=== PATIENT | male | born 1940 | race Caucasian/White ===

== ENCOUNTER 2017-06-17 10:58 | Outpatient (CLI) | payer MEDICARE ==
[2017-06-17 13:29] LABS: #Basophils 0.1 thou/uL (0.0-0.2); #Eosinphils 0.1 thou/uL (0.0-0.7); #Lymphocytes 1.9 thou/uL (1.20-3.40); #Monocytes 0.7 thou/uL (0.11-0.59); #Neutrophils 7.1 thou/uL (1.40-6.50); %Basophils 0.5 % (0.0-1.0); %Eosinophils 0.9 % (0.0-10.0); %Lymphocytes 19.2 % (21.0-51.0); %Monocytes 7.1 % (0.0-10.0); %Neutrophils 72.3 % (42.0-75.0); Hemoglobin 16.3 g/dL (14.0-18.0); Mean Corpuscular HGB CONC 33.5 g/dL (32.0-36.0); Mean Corpuscular Hemoglobin 33.5 pg (27.0-31.0); Mean Corpuscular Volume 99.9 fl (80.0-94.0); Mean Platelet Volume 7.3 fL (7.4-10.4); Platelet Count 348 thou/uL (130-400); RBC Distribution Width 13.4 % (11.5-14.5); Red Blood Cell (RBC) Count 4.88 mill/uL (4.70-6.10); White Blood Cell (WBC) Count 9.8 thou/uL (4.8-10.8)
[2017-06-17 13:55] LABS: Anion Gap 15 mmol/L (10-20); BUN (Urea Nitrogen) 26 mg/dL (8.4-25.7); Calc. Creatinine Clearance 0 mL/min (70-130); Calcium 9.7 mg/dL (7.8-10.44); Carbon Dioxide 27 mmol/L (23-31); Chloride 101 mmol/L (98-107); Estimated GFR-MDRD 76; Glucose 81 mg/dL (83-110); Potassium 4.5 mmol/L (3.5-5.1); Sodium 138 mmol/L (136-145)
--- NOTE | 2017-06-24 19:36 | EKG ---
Test Reason : Blood Pressure : / mmHG Vent. Rate : 074 BPM Atrial Rate : 074 BPM P-R Int : 132 ms QRS Dur : 090 ms QT Int : 402 ms P-R-T Axes : 075 019 047 degrees QTc Int : 446 ms Normal sinus rhythm Normal ECG When compared with ECG of 25-DEC-2010 14:56, Premature supraventricular complexes are no longer Present ST no longer elevated in Inferior leads Nonspecific T wave abnormality, improved in Lateral leads Confirmed by ROSA GODOY (2) on 06/24/2017 7:36:34 PM Referred By: SACHA Confirmed By:ROSA GODOY
== END 2017-06-17 10:59 | disposition home or self-care (01) ==
LOC: LABBT 10:58
PROVIDERS: ATTEND Surgery
DX: Z01.818 Encounter for other preprocedural examination (principal); K40.90 Unilateral inguinal hernia, without obstruction or gangrene, not specified as recurrent
CPT/HCPCS: 80048; 85025; 93005; 93010

== ENCOUNTER 2017-06-22 09:12 | Day surgery (SDC) | payer MEDICARE ==
[2017-06-17 11:28] VITALS: BMI 28.0
[2017-06-22] MEDS ORDERED: CEFAZOLIN/Water 2 GM/20 ML SYRINGE ONE (10:28)
[2017-06-22] MEDS ORDERED: Fentanyl 100 MCG/2 ML VIAL ONE (10:29)
[2017-06-22] MEDS ORDERED: Bupivacaine PF 0.5% 30 ML VIAL ONE (10:31)
[2017-06-22] MEDS ORDERED: Bupivacaine/Epinephrine 0.25% 30 ML VIAL ONE (10:31)
[2017-06-22] MEDS ORDERED: Ondansetron HCl/PF 4 MG/2 ML Vial ONE (15:22)
[2017-06-22] MEDS ORDERED: Lidocaine 1% PF 5 ML VIAL ONE (15:22)
[2017-06-22] MEDS ORDERED: PROPOFOL 200 MG/20 ML VIAL ONE (15:22)
[2017-06-22] MEDS ORDERED: ePHEDrine/0.9% NaCl/PF SYRINGE 50 mg/10 ml ONE (15:22)
--- NOTE | 2017-06-23 15:08 | OP ---
DATE OF PROCEDURE: 06/22/2017 PREOPERATIVE DIAGNOSIS: Left inguinal hernia. POSTOPERATIVE DIAGNOSIS: Left inguinal hernia. PROCEDURES PERFORMED: Left inguinal hernia repair with mesh, PHS extended. SURGEON: Dr. De La Torre. ANESTHESIA: General. ESTIMATED BLOOD LOSS: Minimal. COMPLICATIONS: None. SPECIMEN: None. TECHNIQUE: The patient was taken to the operating room and placed on the supine table. After genera l anesthetic was obtained, bilateral groins and abdomen were shaved, prepped and draped in a sterile fashion. Oblique incision was made above the pubic tubercle in the left lower quadrant. Cautery dis sected down through Phillip's to expose the external oblique. External oblique fibers opened along th e course of the external ring. Ilioinguinal nerve was found and segmentally high removed to prevent postop pain. Cord structures were mobilized on the pubic tubercle using a Dale drain. Dissection superior medially on the cord showed there to be an indirect hernia sac. The indirect hernia sac wa s dissected away from other structures. A high ligation was performed using 2-[address] ump was inverted back into the abdominal cavity. Preperitoneal space was bluntly dissected through t he internal ring. PHS extended mesh brought into the sterile field. The underlay was placed in the preperitoneal space, its fibers laid out flat against the posterior abdominal wall. The overlay was laid in the floor of the inguinal canal. The overlay was cut laterally to incorporate the internal r ing. The overlay is sewn distally to the pubic tubercle, medially to the transverse arch and lateral ly to the shelving edge of inguinal ligament using permanent braided suture. The two ends of cut mes h were reapproximated the shelving edge of inguinal ligament to reform the internal ring. The extra mesh was tucked back under the external oblique proximally. The wound was irrigated. Local anesthet ic was applied. Tunneled catheter for postop pain is threaded from above the incision and left on to p of the mesh. External oblique was closed using 3-0 Vicryl. Phillip's fascia was closed using 3-0 V icryl. Skin was closed with running 4-0 Monocryl and Dermabond. The patient was en route to recover y in stable condition. All instrument counts, needle counts, and lap counts were correct.
== END 2017-06-22 13:55 | disposition home or self-care (01) ==
LOC: SDC 09:12
PROVIDERS: ATTEND Surgery
PROC: 0YU60JZ Supplement Left Inguinal Region with Synthetic Substitute, Open Approach (ICD-10-PCS; principal; 2017-06-22)
DX: K40.90 Unilateral inguinal hernia, without obstruction or gangrene, not specified as recurrent (principal); I10 Essential (primary) hypertension; Z88.2 Allergy status to sulfonamides; Z79.82 Long term (current) use of aspirin; Z79.899 Other long term (current) drug therapy; Z95.1 Presence of aortocoronary bypass graft; Z90.79 Acquired absence of other genital organ(s); Z98.890 Other specified postprocedural states; Z86.73 Personal history of transient ischemic attack (TIA), and cerebral infarction without residual deficits
CPT/HCPCS: 49505; A4306; C1781; J2001; J2405; J2704; J3010; S0020

== ENCOUNTER 2018-11-08 09:54 | Outpatient (CLI) | payer MEDICARE ==
--- NOTE | 2018-11-08 13:47 | NM ---
WHOLE BODY BONE SCAN: HISTORY: Malignant neoplasm of prostate RADIOPHARMACEUTICAL: 33 mCi technetium 99m-MDP injected intravenously COMPARISON:07/24/2015 CORRELATION: None FINDINGS: Increased uptake in the spine, shoulders, elbows, wrists, knees, ankles and feet is consistent with d egenerative changes. There is increased uptake in the right hip which is new since the last exam. This may be due to degenerative change or bony metastasis. No other abnormal areas of tracer localization is seen in the skeleton. Tracer excretion through the kidneys is within normal limits. IMPRESSION: New uptake in the right hip may either be due to metastatic disease or degenerative walker es. Radiographic correlation is recommended.
== END 2018-11-08 09:55 | disposition home or self-care (01) ==
LOC: NM 09:54
PROVIDERS: ATTEND Internal Medicine Hematology & Oncology
DX: C61 Malignant neoplasm of prostate (principal); R93.7 Abnormal findings on diagnostic imaging of other parts of musculoskeletal system
CPT/HCPCS: 78306; A9503

== ENCOUNTER 2019-05-17 16:04 | Observation (INO) | payer MEDICARE ==
--- NOTE | 2019-05-17 16:41 | RAD ---
Chest one view HISTORY: Chest pain. COMPARISON: 12/24/2010. FINDINGS: Cardiac silhouette is magnified by projection. Pulmonary vasculature upper limits of normal . Mediastinum is midline with postoperative changes and aortic calcification. Mild linear scarring at the left lung base. No lobar consolidation or evidence of pneumothorax. IMPRESSION: Atherosclerosis. Chronic-type findings. No active cardiopulmonary abnormalities are reliably demonstrated.
[2019-05-17 17:01] LABS: #Eosinphils 0.2 thou/uL (0.0-0.7); #Lymphocytes 1.7 thou/uL (1.20-3.40); #Monocytes 0.6 thou/uL (0.11-0.59); #Neutrophils 5.6 thou/uL (1.40-6.50); %Basophils 0.3 % (0.0-1.0); %Eosinophils 2.2 % (0.0-10.0); %Lymphocytes 21.2 % (21.0-51.0); %Monocytes 7.2 % (0.0-10.0); Mean Corpuscular HGB CONC 33.5 g/dL (32.0-36.0); Mean Corpuscular Hemoglobin 33.4 pg (27.0-31.0); Mean Corpuscular Volume 99.7 fL (78.0-98.0); Mean Platelet Volume 7.9 fL (7.4-10.4); Platelet Count 252 thou/uL (130-400); RBC Distribution Width 12.9 % (11.5-14.5); Red Blood Cell (RBC) Count 4.81 mill/uL (4.70-6.10); White Blood Cell (WBC) Count 8.2 thou/uL (4.8-10.8)
[2019-05-17 17:28] LABS: ALT (SGPT) 19 U/L (8-55); AST (SGOT) 21 U/L (5-34); Albumin 3.9 g/dL (3.4-4.8); Alkaline Phosphatase 80 U/L (40-110); Anion Gap 12 mmol/L (10-20); BUN (Urea Nitrogen) 21 mg/dL (8.4-25.7); Bilirubin, Total 0.4 mg/dL (0.2-1.2); CK (CPK) 155 U/L (30-200); Calc. Creatinine Clearance 0 mL/min (70-130); Calcium 9.2 mg/dL (7.8-10.44); Carbon Dioxide 28 mmol/L (23-31); Chloride 103 mmol/L (98-107); Estimated GFR-MDRD 62; Globulin 2.8 g/dL (2.4-3.5); Glucose 172 mg/dL (83-110); Potassium 3.8 mmol/L (3.5-5.1); Protein, Total 6.7 g/dL (5.8-8.1); Sodium 139 mmol/L (136-145)
[2019-05-17] MEDS ORDERED: Aspirin Chewable 81 MG TAB ONE (17:58)
[2019-05-18 00:25] LABS: Troponin I Less than 0.010 ng/mL (< 0.028)
[2019-05-18 01:36] VITALS: BMI 29.0
[2019-05-18] MEDS ORDERED: Loratadine 10 MG TAB PO PRN (04:23)
[2019-05-18] MEDS ORDERED: HYDROcodone/Acetaminophen 5/325 mg Tablet PO PRN (04:24)
[2019-05-18] MEDS ORDERED: Bisacodyl 10 MG SUPP PR PRN (04:24)
[2019-05-18] MEDS ORDERED: Bisacodyl 5 MG TAB PO PRN (04:24)
[2019-05-18] MEDS ORDERED: Acetaminophen 325 MG TAB PO PRN (04:24)
[2019-05-18] MEDS ORDERED: Promethazine HCl 12.5 MG in Sodium Chloride 0.9% 50 ML IVPB PRN (04:25)
[2019-05-18] MEDS ORDERED: Ondansetron PF 4 MG/2 ML Vial IVP PRN (04:25)
[2019-05-18] MEDS ORDERED: Morphine 2 MG/ML SYRINGE SLOW IVP PRN (04:25)
[2019-05-18] MEDS ORDERED: cloNIDine 0.1 MG TAB PO PRN (04:25)
[2019-05-18] MEDS ORDERED: hydrALAZINE 20 MG/ML VIAL SLOW IVP PRN (04:25)
--- NOTE | 2019-05-18 04:36 | PDOC.HHP ---
Hospitalist HPI - History of Present Illness Arm Pain History of Present Illness: Patient is a 79 year old male with PMH CABG who presents to ED for L arm pain, not present at time of interview but began about a day ago, no recent trauma or overuse, went from mid upper arm to fingers, in ED EKG w/ RBB, no acute ST changes. His heart doctor is Dr Martinez, patient just saw him Wednesday where abnormally high cholelesterol was noticed and treated with injection of some kind. Otherwise patient in normal state of health, denies orthopnea/shortness of breath, no pain currently. Hospitalist ROS - Review of Systems Constitutional: denies: fever, chills Eyes: denies: pain, vision change ENT: denies: ear pain, throat pain Respiratory: denies: cough, shortness of breath Cardiovascular: denies: chest pain, palpitations Gastrointestinal: denies: nausea, vomiting Genitourinary: denies: dysuria, frequency Musculoskeletal: reports: arm pain (L) Skin: denies: rash, lesions Neurological: denies: weakness, numbness All other systems reviewed; all pertinent +/- noted in HPI/Subj Hospitalist History - Past Medical History Other Medical History: CAD prostate cancer TIA - Past Surgical History Other Surgical History: cardiac ablation CABG - Family History Other Family History: reviewed noncontributory - Social History Tobacco Type: chewing tobacco Alcohol: reports: None Drugs: reports: none - Exam General Appearance: NAD, awake alert Eye: PERRL, anicteric sclera ENT: normocephalic atraumatic, moist mucosa Neck: supple, symmetric, no JVD Heart: RRR, no murmur, no gallops Respiratory: CTAB, no wheezes, no rales Gastrointestinal: soft, non-tender, non-distended, normal bowel sounds Extremities: no cyanosis, no clubbing, no edema Skin: no lesions, no rashes Neurological: cranial nerve grossly intact, normal sensation to touch, no weakness, no focal deficits Musculoskeletal: normal tone, normal strength Psychiatric: normal affect, normal behavior, A&O x 3 Hospitalist Results - Labs Result Diagrams: 05/17/19 16:30 05/17/19 16:30 Lab results: WBC 8.2 thou/uL (4.8-10.8) 05/17/19 16:30 Hgb 16.0 g/dL (14.0-18.0) 05/17/19 16:30 Hct 47.9 % (42.0-52.0) 05/17/19 16:30 MCV 99.7 fL (78.0-98.0) H 05/17/19 16:30 Plt Count 252 thou/uL (130-400) 05/17/19 16:30 Neutrophils % 69.0 % (42.0-75.0) 05/17/19 16:30 Sodium 139 mmol/L (136-145) 05/17/19 16:30 Potassium 3.8 mmol/L (3.5-5.1) 05/17/19 16:30 Chloride 103 mmol/L (98-107) 05/17/19 16:30 Carbon Dioxide 28 mmol/L (23-31) 05/17/19 16:30 BUN 21 mg/dL (8.4-25.7) 05/17/19 16:30 Creatinine 1.15 mg/dL (0.7-1.3) 05/17/19 16:30 Glucose 172 mg/dL (83-110) H 05/17/19 16:30 Calcium 9.2 mg/dL (7.8-10.44) 05/17/19 16:30 Total Bilirubin 0.4 mg/dL (0.2-1.2) 05/17/19 16:30 AST 21 U/L (5-34) 05/17/19 16:30 ALT 19 U/L (8-55) 05/17/19 16:30 Alkaline Phosphatase 80 U/L (40-110) 05/17/19 16:30 Creatine Kinase 155 U/L (30-200) 05/17/19 16:30 Troponin I Less than 0.010 ng/mL (< 0.028) 05/17/19 23:50 Serum Total Protein 6.7 g/dL (5.8-8.1) 05/17/19 16:30 Albumin 3.9 g/dL (3.4-4.8) 05/17/19 16:30 - EKG Interpretation EKG: sinus RBBB rate [address] changes Hospitalist H&P A/P - Plan Plan: Patient is a 79 year old male with PMH CABG who presents to ED for L arm pain, being treated for: # L arm pain - resolved, ED was treating as if anginal equivalent # CAD w/ history of CABG - noted, continue home medcations, add beta muna since not on one - continue ASA, statin, add low dose beta muna - consult Dr Martinez # history of TIA - noted, this did not present with focal defecits, continue ASA /statin
[2019-05-18 06:09] LABS: Troponin I Less than 0.010 ng/mL (< 0.028)
[2019-05-18] MEDS ORDERED: Amlodipine 10 MG TAB PO SCH (09:00)
[2019-05-18] MEDS ORDERED: Senokot S 8.6-50 MG TAB PO SCH (09:00)
[2019-05-18] MEDS ORDERED: Losartan 25 MG TAB PO SCH (09:00)
[2019-05-18] MEDS ORDERED: Non-Formulary Item 1 EACH (Omeprazole [Omeprazole] 20 MG) PO SCH (09:00)
[2019-05-18] MEDS ORDERED: Enoxaparin Sodium 40 MG/0.4 ML SYRINGE SC SCH (09:00)
[2019-05-18] MEDS ORDERED: Metoprolol Tartrate 25 MG TAB PO SCH (09:00)
[2019-05-18] MEDS ORDERED: Hydrochlorothiazide 25 MG TAB PO SCH (09:00)
[2019-05-18 11:17] LABS: Troponin I Less than 0.010 ng/mL (< 0.028)
--- NOTE | 2019-05-18 14:45 | PDOC.HOSPP ---
- Subjective Encounter Date: 05/18/19 Encounter Time: 10:30 Subjective: no current chest pain or sob had left UE pain and numbness, no sob now at bedside - Objective Vital Signs & Weight: Vital Signs (12 hours) Temp Pulse Resp BP Pulse Ox 05/18/19 11:13 97.3 F L 62 16 136/73 94 L 05/18/19 09:50 56 L 05/18/19 07:24 97.6 F 56 L 20 147/99 H 98 05/18/19 04:41 97.4 F L 59 L 16 136/69 95 Weight Weight 191 lb 4.8 oz I&O: 05/17/19 05/18/19 05/19/19 06:59 06:59 06:59 Intake Total 240 Output Total 550 Balance -310 Result Diagrams: 05/17/19 16:30 05/17/19 16:30 Hospitalist ROS - Medication Medications: Active Medications Generic Name Dose Route Start Last Admin Trade Name Freq PRN Reason Stop Dose Admin Amlodipine Besylate 10 mg 05/18/19 09:00 05/18/19 09:50 Norvasc PO 10 mg QAM JARROD Administration Enoxaparin Sodium 40 mg 05/18/19 09:00 05/18/19 09:50 Lovenox SC 40 mg 0900 JARROD Administration Hydrochlorothiazide 25 mg 05/18/19 09:00 05/18/19 09:51 Hydrochlorothiazide PO Not Given DAILY [facility] Losartan Potassium 100 mg 05/18/19 09:00 05/18/19 09:51 Cozaar PO Not Given DAILY [facility] Metoprolol Tartrate 12.5 mg 05/18/19 09:00 05/18/19 09:51 Lopressor PO Not Given BID JARROD Pantoprazole Sodium 40 mg 05/18/19 09:00 05/18/19 09:50 Protonix PO 40 mg DAILY JARROD Administration Senna/Docusate Sodium 1 tab 05/18/19 09:00 05/18/19 09:50 Senokot S PO 1 tab BID JARROD Administration - Exam General Appearance: NAD, awake alert Eye: PERRL, anicteric sclera ENT: no oropharyngeal lesions, moist mucosa Neck: supple, no JVD Heart: RRR, no murmur Respiratory: no wheezes, no rales Gastrointestinal: soft, non-tender, non-distended, normal bowel sounds Extremities: no cyanosis, no edema Neurological: cranial nerve grossly intact, no focal deficits Psychiatric: normal affect, A&O x 3 Hosp A/P (1) Chest pain Code(s): R07.9 - CHEST PAIN, UNSPECIFIED Status: Acute Qualifiers: Chest pain type: unspecified Qualified Code(s): R07.9 - Chest pain, unspecified (2) CAD (coronary artery disease) Code(s): I25.10 - ATHSCL HEART DISEASE OF [place] CORONARY ARTERY W/O ANG PCTRS Status: Chronic Qualifiers: Coronary Disease-Associated Artery/Lesion type: bypass graft [place] vs. transplanted heart: tribe heart Associated angina: without angina Qualified Code(s): I25.810 - Atherosclerosis of coronary artery bypass graft(s) without angina pectoris (3) HTN (hypertension) Code(s): I10 - ESSENTIAL (PRIMARY) HYPERTENSION Status: Chronic Qualifiers: Hypertension type: essential hypertension Qualified Code(s): I10 - Essential (primary) hypertension (4) Dyslipidemia Code(s): E78.5 - HYPERLIPIDEMIA, UNSPECIFIED Status: Chronic (5) H/O prostate cancer Code(s): Z85.46 - PERSONAL HISTORY OF MALIGNANT NEOPLASM OF PROSTATE Status: Chronic - Plan hemostable await stress test results has consulted this am continue asp, lipitor, hctz, cozaar and lopressor hemostable trop x 3 -ve dc plan per cardio adv
--- NOTE | 2019-05-18 15:06 | NM ---
EXAM: CARDIAC SPECT HISTORY: Chest pain, coronary artery disease, CABG, atrial fibrillation TECHNIQUE: A myocardial perfusion scan was performed using the single isotope 1 day protocol with wilner hnetium 99m sestamibi. [10 mCi] was injected intravenously for the rest exam followed by 30 mCi for the stress study. Exercise stress was monitored and interpreted by JESSICA Goodwin FINDINGS: Homogeneous tracer distribution is seen in the myocardial segments on stress and rest image s without fixed or reversible defects. Gated SPECT LVEF: 60% Wall motion exam: Normal IMPRESSION: Normal myocardial perfusion scan
[2019-05-18 15:39] VITALS: BP 143/65; TEMP 98.6
[2019-05-18] MEDS ORDERED: Allopurinol 300 MG TAB PO SCH (21:00)
[2019-05-18] MEDS ORDERED: Atorvastatin Calcium 20 MG TAB PO SCH (21:00)
[2019-05-18] MEDS ORDERED: Aspirin 325 mg Enteric Coated Tablet PO SCH (21:00)
--- NOTE | 2019-05-19 07:47 | DIS ---
DATE OF ADMISSION: 05/17/2019 DATE OF DISCHARGE: 05/18/2019 DISCHARGE DISPOSITION: Home. PRIMARY DISCHARGE DIAGNOSIS: Chest pain, which is noncardiac. SECONDARY DISCHARGE DIAGNOSES: History of coronary artery disease with prior 1 vessel coronary artery bypass graft, hypertension, dyslipidemia, history of prostate cancer. PROCEDURES DONE DURING HOSPITALIZATION: Chest x-ray done, showed no acute cardiopulmonary disease. Nuclear stress test done, showed ejection fraction of 60%. There was no fixed or reversible defect. H and H 16 and 47, platelet count 252, MCV is 99. Troponin x5 was negative. BUN 21, creatinine 1.1. Albumin was 3.9. INPATIENT CONSULT: Dr. Martinez for Cardiology. DISCHARGE MEDICATIONS: 1. Allopurinol 600 mg p.o. q.p.m. 2. Norvasc 10 mg p.o. q.a.m. 3. Aspirin 325 mg p.o. daily. 4. Zyrtec 10 mg p.o. q.p.m. p.r.n. 5. Fish oil 1200 mg daily. 6. Lupron Depot Shots 45 mg IM q.3 months. 7. Multivitamin 1 tablet daily. 8. Omeprazole 20 mg daily. 9. Pitavastatin 4 mg p.o. q.p.m. 10. Telmisartan with hydrochlorothiazide 80/12.5 mg daily. 11. CoQ10 400 mg p.o. q.p.m. 12. Venlafaxine 70 mg p.o. q.p.m. 13. Lopressor 12.5 mg twice daily. ALLERGIES: ALLERGIC TO SULFA. DISCHARGE PLAN: The patient to follow up with his primary care physician, Dr. Kulwinder Szymanski in 1 week. He also needs to follow up with Dr. Martinez as advised. BRIEF COURSE DURING HOSPITALIZATION: The patient initially came in with complaints of left arm pain with chest discomfort. In view of risk factors, the patient was placed on telemetry under observation status to rule out acute coronary syndrome. He has had multiple sets of troponin done, which were negative. Nuclear stress test done, showed no reversible ischemia. He has remained hemodynamically stable, and ambulating and eating well prior to discharge. He was evaluated by Dr. Martinez as well during his brief stay here. Please see a [id number] documentation for the day of discharge on [employer]. Job ID: [id number] [facility]
== END 2019-05-18 16:48 | disposition home or self-care (01) ==
LOC: ERS 16:04 → 2SW 22:47
PROVIDERS: ADMIT Family Medicine; ATTEND Family Medicine
DX: R07.9 Chest pain, unspecified (principal); I25.10 Atherosclerotic heart disease of native coronary artery without angina pectoris; I10 Essential (primary) hypertension; E78.5 Hyperlipidemia, unspecified; F17.220 Nicotine dependence, chewing tobacco, uncomplicated; Z79.82 Long term (current) use of aspirin; Z79.899 Other long term (current) drug therapy; Z85.46 Personal history of malignant neoplasm of prostate; Z86.73 Personal history of transient ischemic attack (TIA), and cerebral infarction without residual deficits; Z88.2 Allergy status to sulfonamides; Z95.1 Presence of aortocoronary bypass graft
CPT/HCPCS: 71045; 78452; 80053; 82550; 84484 ×4; 85025; 93005; 93017; 96372; 99284; A9500; G0378 ×3; 36415; J1650

== ENCOUNTER 2021-07-16 09:03 | Outpatient (CLI) | payer MEDICARE | END 2021-07-16 09:04 | disposition home or self-care (01) | LOC: CT 09:03 | PROVIDERS: ATTEND Internal Medicine Hematology & Oncology | DX: C61 Malignant neoplasm of prostate (principal); R97.20 Elevated prostate specific antigen [PSA] | CPT/HCPCS: 71260; 74177; 78306; 82565; A9503 ==

== ENCOUNTER 2022-10-01 09:46 | Outpatient (CLI) | payer MEDICARE | END 2022-10-01 09:47 | disposition home or self-care (01) | LOC: CT 09:46 | PROVIDERS: ATTEND Internal Medicine Hematology & Oncology | DX: C61 Malignant neoplasm of prostate (principal); C77.8 Secondary and unspecified malignant neoplasm of lymph nodes of multiple regions; D50.9 Iron deficiency anemia, unspecified; K59.00 Constipation, unspecified; K44.9 Diaphragmatic hernia without obstruction or gangrene; I70.0 Atherosclerosis of aorta; I77.811 Abdominal aortic ectasia; N28.9 Disorder of kidney and ureter, unspecified | CPT/HCPCS: 71260; 74177; 78306; 82565; A9503 ==

== ENCOUNTER 2022-12-21 09:58 | Day surgery (SDC) | payer MEDICARE ==
[2022-12-17 12:32] VITALS: BMI 26.6
[2022-12-21] MEDS ORDERED: Bupivacaine HCl 0.5%/Epinephrine 1:200,000/PF 30 ml Vial ONE (11:27)
[2022-12-21] MEDS ORDERED: Lidocaine 1% (PF) 30 ML VIAL ONE (11:27)
[2022-12-21] MEDS ORDERED: fentaNYL 50 mcg/mL 1 mL Vial ONE (11:51)
[2022-12-21] MEDS ORDERED: Lidocaine 1% PF 5 ML VIAL ONE (12:50)
[2022-12-21] MEDS ORDERED: PROPOFOL 200 MG/20 ML VIAL ONE (12:50)
[2022-12-21] MEDS ORDERED: CEFAZOLIN 2 GM VIAL ONE (12:54)
[2022-12-21] MEDS ORDERED: Sodium Chloride 0.9% 100 ML ONE (12:54)
== END 2022-12-21 14:43 | disposition home or self-care (01) ==
LOC: SDC 09:58
PROVIDERS: ATTEND Specialist
PROC: 0JH60WZ Insertion of Totally Implantable Vascular Access Device into Chest Subcutaneous Tissue and Fascia, Open Approach (ICD-10-PCS; principal; 2022-12-21)
DX: C61 Malignant neoplasm of prostate (principal); I10 Essential (primary) hypertension; I25.10 Atherosclerotic heart disease of native coronary artery without angina pectoris; E78.00 Pure hypercholesterolemia, unspecified; K21.9 Gastro-esophageal reflux disease without esophagitis; Z95.5 Presence of coronary angioplasty implant and graft; Z79.82 Long term (current) use of aspirin; Z79.899 Other long term (current) drug therapy; Z88.2 Allergy status to sulfonamides
CPT/HCPCS: 36561; 71045; J3010; C1788; J1642; J2001; J2704; J3490

== ENCOUNTER 2023-02-23 13:49 | Inpatient (IN) | payer MEDICARE ==
[~2023-02-23 13:49] MED LIST: Iopamidol-370 76% 500 ML MDV (1 ML CHARGE) ONE
[2023-02-23 14:58] LABS: #Monocytes 0.9 thou/uL (0.11-0.59); #Neutrophils 6.9 thou/uL (1.40-6.50); %Basophils 0.3 % (0.0-1.0); %Lymphocytes 9.4 % (21.0-51.0); %Neutrophils 79.1 % (42.0-75.0); Hematocrit 37.6 % (42.0-52.0); Hemoglobin 12.6 g/dL (14.0-18.0); Mean Corpuscular HGB CONC 33.5 g/dL (32.0-36.0); Mean Corpuscular Hemoglobin 33.1 pg (27.0-31.0); Mean Corpuscular Volume 98.7 fl (78.0-98.0); Mean Platelet Volume 10.1 fL (7.4-10.4); Platelet Count 437 10x3/uL (130-400); RBC Distribution Width 14.7 % (11.5-14.5); Red Blood Cell (RBC) Count 3.81 mill/uL (4.70-6.10); White Blood Cell (WBC) Count 8.7 10x3/uL (4.8-10.8)
[2023-02-23 15:25] LABS: ALT (SGPT) 42 U/L (8-55); AST (SGOT) 34 U/L (5-34); Albumin 3.3 g/dL (3.4-4.8); Alkaline Phosphatase 94 U/L (40-110); Anion Gap 14 mmol/L (10-20); BUN (Urea Nitrogen) 18 mg/dL (8.4-25.7); Bilirubin, Total 0.7 mg/dL (0.2-1.2); Calc. Creatinine Clearance 0 mL/min (70-130); Calcium 8.4 mg/dL (7.8-10.44); Carbon Dioxide 23 mmol/L (23-31); Chloride 102 mmol/L (98-107); Estimated GFR 64; Globulin 2.2 g/dL (2.4-3.5); Glucose 135 mg/dL (83-110); Potassium 4.1 mmol/L (3.5-5.1); Protein, Total 5.5 g/dL (5.8-8.1); Sodium 135 mmol/L (136-145)
[2023-02-23 15:28] LABS: Troponin I 0.022 ng/mL (< 0.028)
[2023-02-23 16:59] LABS: Magnesium 1.8 mg/dL (1.6-2.6)
[2023-02-23 17:40] LABS: SARS-CoV-2 NAA Rapid Test Not Detected (NotDetected)
[2023-02-23] MEDS ORDERED: LevoFLOXacin 750 mg/D5W 150 ml Premix Bag ONE (21:09)
[2023-02-23] MEDS ORDERED: Acetaminophen 325 MG TAB PO PRN (22:16)
[2023-02-23] MEDS ORDERED: Ondansetron PF 4 MG/2 ML Vial IVP PRN (22:16)
[2023-02-23] MEDS ORDERED: Ipratropium/Albuterol 3 ML NEB EZPAP PRN (22:20)
[2023-02-24 00:15] VITALS: BMI 28.5
[2023-02-24] MEDS: Ipratropium/Albuterol 3 ML NEB EZPAP SCH ×5 (01:25→23:38)
[2023-02-24 05:04] LABS: #Neutrophils 6.8 thou/uL (1.40-6.50); %Basophils 0.3 % (0.0-1.0); %Lymphocytes 8.3 % (21.0-51.0); %Monocytes 11.1 % (0.0-10.0); %Neutrophils 79.4 % (42.0-75.0); Hematocrit 34.5 % (42.0-52.0); Hemoglobin 11.6 g/dL (14.0-18.0); Mean Corpuscular HGB CONC 33.6 g/dL (32.0-36.0); Platelet Count 392 10x3/uL (130-400); RBC Distribution Width 14.6 % (11.5-14.5); Red Blood Cell (RBC) Count 3.52 mill/uL (4.70-6.10); White Blood Cell (WBC) Count 8.6 10x3/uL (4.8-10.8)
[2023-02-24 05:18] LABS: Anion Gap 13 mmol/L (10-20); BUN (Urea Nitrogen) 16 mg/dL (8.4-25.7); Calc. Creatinine Clearance 82 mL/min (70-130); Calcium 8.5 mg/dL (7.8-10.44); Carbon Dioxide 24 mmol/L (23-31); Chloride 101 mmol/L (98-107); Estimated GFR 88; Glucose 110 mg/dL (83-110); Potassium 3.4 mmol/L (3.5-5.1); Sodium 135 mmol/L (136-145)
[2023-02-24] MEDS ORDERED: Potassium Chloride 20 MEQ TAB PO SCH (09:00)
[2023-02-24] MEDS: Magnesium Oxide 400 MG TAB PO SCH (09:45)
[2023-02-24] MEDS: Furosemide 40 MG/4 ML VIAL SLOW IVP SCH (09:45)
[2023-02-24] MEDS: Aspirin 81 mg Enteric Coated Tablet PO SCH (09:46)
[2023-02-24 18:52] LABS: SARS-CoV-2 NAA Rapid Test Not Detected (NotDetected)
[2023-02-24] MEDS: Mometasone 200 MCG/Formoterol 5 MCG 120 PUFF INHALER INH SCH (19:07)
[2023-02-24] MEDS ORDERED: LevoFLOXacin 750 mg/D5W 750 MG in Premix Bag 1 BAG IVPB SCH (22:00)
[2023-02-25 05:09] LABS: #Monocytes 1.1 thou/uL (0.11-0.59); #Neutrophils 6.8 thou/uL (1.40-6.50); %Basophils 0.2 % (0.0-1.0); %Lymphocytes 7.5 % (21.0-51.0); %Neutrophils 78.3 % (42.0-75.0); Hematocrit 35.3 % (42.0-52.0); Hemoglobin 11.7 g/dL (14.0-18.0); Mean Corpuscular HGB CONC 33.1 g/dL (32.0-36.0); Mean Corpuscular Hemoglobin 32.7 pg (27.0-31.0); Mean Corpuscular Volume 98.6 fl (78.0-98.0); Mean Platelet Volume 10.1 fL (7.4-10.4); Platelet Count 429 10x3/uL (130-400); RBC Distribution Width 14.8 % (11.5-14.5); Red Blood Cell (RBC) Count 3.58 mill/uL (4.70-6.10); White Blood Cell (WBC) Count 8.7 10x3/uL (4.8-10.8)
[2023-02-25 05:43] LABS: Anion Gap 14 mmol/L (10-20); BUN (Urea Nitrogen) 14 mg/dL (8.4-25.7); Calc. Creatinine Clearance 89 mL/min (70-130); Calcium 8.9 mg/dL (7.8-10.44); Carbon Dioxide 24 mmol/L (23-31); Chloride 103 mmol/L (98-107); Estimated GFR 89; Glucose 111 mg/dL (83-110); Potassium 3.7 mmol/L (3.5-5.1); Sodium 137 mmol/L (136-145)
[2023-02-25] MEDS: Ipratropium/Albuterol 3 ML NEB EZPAP SCH ×2 (07:32→13:27)
[2023-02-25] MEDS: Mometasone 200 MCG/Formoterol 5 MCG 120 PUFF INHALER INH SCH (07:34)
[2023-02-25] MEDS: Furosemide 40 MG/4 ML VIAL SLOW IVP SCH (08:44)
[2023-02-25] MEDS: Magnesium Oxide 400 MG TAB PO SCH (08:45)
[2023-02-25] MEDS: Aspirin 81 mg Enteric Coated Tablet PO SCH (08:45)
[2023-02-25 16:55] VITALS: BP 137/67; TEMP 98.2
== END 2023-02-25 18:15 | disposition home or self-care (01) | DRG 193 ==
LOC: ERS 13:49 → 2SW 22:16
PROVIDERS: ADMIT Internal Medicine; ATTEND Internal Medicine
DX: J18.9 Pneumonia, unspecified organism (principal); J96.01 Acute respiratory failure with hypoxia; J90 Pleural effusion, not elsewhere classified; I50.32 Chronic diastolic (congestive) heart failure; K52.1 Toxic gastroenteritis and colitis; J98.11 Atelectasis; I25.810 Atherosclerosis of coronary artery bypass graft(s) without angina pectoris; J47.9 Bronchiectasis, uncomplicated; J84.10 Pulmonary fibrosis, unspecified; E78.00 Pure hypercholesterolemia, unspecified; F32.A Depression, unspecified; F17.210 Nicotine dependence, cigarettes, uncomplicated; I25.10 Atherosclerotic heart disease of native coronary artery without angina pectoris; I11.0 Hypertensive heart disease with heart failure; C61 Malignant neoplasm of prostate; E78.5 Hyperlipidemia, unspecified; T45.1X5A Adverse effect of antineoplastic and immunosuppressive drugs, initial encounter; K44.9 Diaphragmatic hernia without obstruction or gangrene; I45.10 Unspecified right bundle-branch block; I48.0 Paroxysmal atrial fibrillation; Z20.822 Contact with and (suspected) exposure to COVID-19; Z79.899 Other long term (current) drug therapy; Z95.1 Presence of aortocoronary bypass graft; Z88.2 Allergy status to sulfonamides; Z86.73 Personal history of transient ischemic attack (TIA), and cerebral infarction without residual deficits; Z90.49 Acquired absence of other specified parts of digestive tract; Z98.890 Other specified postprocedural states; Z79.82 Long term (current) use of aspirin
CPT/HCPCS: 36415; 71045; 71275; 80048; 80053; 83735; 83880; 84145; 84484; 85025; 86038; 86140; 86225; 86713; 87040; 87449; 87633; 93005; 93306; 94640; 96365; J1650; J1940; J1956; J7620; Q9967; U0002

== ENCOUNTER 2023-06-25 09:14 | Outpatient (CLI) | payer MEDICARE | END 2023-06-25 09:15 | disposition home or self-care (01) | LOC: RAD 09:14 | PROVIDERS: ATTEND Internal Medicine | DX: J96.11 Chronic respiratory failure with hypoxia (principal); J98.4 Other disorders of lung; I70.0 Atherosclerosis of aorta; K44.9 Diaphragmatic hernia without obstruction or gangrene; S22.000A Wedge compression fracture of unspecified thoracic vertebra, initial encounter for closed fracture; M40.204 Unspecified kyphosis, thoracic region | CPT/HCPCS: 71046 ==

== ENCOUNTER 2024-05-30 12:30 | Outpatient (CLI) | payer MEDICARE | END 2024-05-30 12:31 | disposition home or self-care (01) | LOC: PET 12:30 | PROVIDERS: ATTEND Internal Medicine Hematology & Oncology | DX: C61 Malignant neoplasm of prostate (principal); C77.8 Secondary and unspecified malignant neoplasm of lymph nodes of multiple regions; D50.9 Iron deficiency anemia, unspecified; R29.6 Repeated falls; C79.51 Secondary malignant neoplasm of bone; R91.1 Solitary pulmonary nodule | CPT/HCPCS: 78816; A9552; A9595 ==

== ENCOUNTER 2024-12-12 11:53 | Outpatient (CLI) | payer MEDICARE | END 2024-12-12 11:54 | disposition home or self-care (01) | LOC: RAD 11:53 | PROVIDERS: ATTEND Internal Medicine | DX: R06.00 Dyspnea, unspecified (principal); J90 Pleural effusion, not elsewhere classified; J98.11 Atelectasis | CPT/HCPCS: 71046 ==